=== PATIENT | female | born 1970 | race Caucasian/White ===

== ENCOUNTER 2024-06-17 20:53 | Emergency (ER) | payer OTHER ==
[~2024-06-17] VITALS: Ht 170.2 cm; Wt 96.3 kg
[2024-06-17] MEDS ORDERED: ATENOLOL50 MG PO (21:10)
[2024-06-17] MEDS ORDERED: DULOXETINE HCL40 MG PO (21:11)
[2024-06-17] MEDS ORDERED: ESTRADIOL2 MG PO (21:11)
[2024-06-17] MEDS ORDERED: AMITRIPTYLINE H10 MG PO (21:11)
[2024-06-17] MEDS ORDERED: NEXIUM 24HR20 M1 PO (21:12)
[2024-06-17] MEDS ORDERED: ondansetron HCL 4 MG/2 ML VIAL IV ONE (22:30)
[2024-06-17] MEDS ORDERED: HYDROmorphone HCL 1 MG/ML SYR IV PRN (22:30)
[2024-06-17] MEDS ORDERED: propofoL 200 MG/20 ML VIAL IV ONE (22:30)
[2024-06-17] MEDS ORDERED: PERCOCET 5-3251 EACH PO (23:39)
[2024-06-17] MEDS ORDERED: OXYCODONE/ACETAMINOPHEN 1 TAB HOME.PACK PO ONE (23:45)
[2024-06-18 00:06] VITALS: BP 121/75
== END 2024-06-18 00:08 | disposition home or self-care (01) ==
LOC: ED 20:53
DX: S82.831A Other fracture of upper and lower end of right fibula, initial encounter for closed fracture (principal); X50.1XXA Overexertion from prolonged static or awkward postures, initial encounter; S43.014A Anterior dislocation of right humerus, initial encounter; W18.30XA Fall on same level, unspecified, initial encounter; I10 Essential (primary) hypertension; Z88.6 Allergy status to analgesic agent; Z88.5 Allergy status to narcotic agent; Z88.7 Allergy status to serum and vaccine; Z79.899 Other long term (current) drug therapy
CPT/HCPCS: 23650; 73030; 73610; 99283-25; J1170; J2405; J2704